=== PATIENT | female | born 1950 | race Caucasian/White ===

== ENCOUNTER 2023-01-10 14:23 | Inpatient (IN) | payer BC, MEDICAID ==
[~2023-01-10] VITALS: Ht 160 cm; Wt 66.7 kg
[2023-01-10 14:46] VITALS: BP_SYST 155; PULSE 85; RESP 16; TEMP 98.7; O2SAT 97
[2023-01-10] MEDS ORDERED: INSU100V7 (15:05)
[2023-01-10] MEDS ORDERED: PANT40TA45 PO (15:05)
[2023-01-10] MEDS ORDERED: AMLO5TAB92 PO (15:05)
[2023-01-10] MEDS ORDERED: GLIM1TAB18 PO (15:05)
[2023-01-10] MEDS ORDERED: CYCL1DRO16 EACH EYE (15:05)
[2023-01-10] MEDS ORDERED: CHOL50006 PO (15:10)
[2023-01-10] MEDS ORDERED: ASPI-524 PO (15:10)
[2023-01-10] MEDS ORDERED: TAMS-11 PO (15:10)
[2023-01-10] MEDS ORDERED: ACET325T39 PO (15:10)
[2023-01-10] MEDS ORDERED: SITA100T11 PO (15:10)
[2023-01-10 15:36] LABS: BASOPHILS # (AUTO) 0.1 K/uL (0.0-0.2); BASOPHILS % (AUTO) 0.6 % (0.0-2.0); EOSINOPHILS # (AUTO) 0.1 K/uL (0.0-0.4); EOSINOPHILS % (AUTO) 1.3 % (0.0-4.0); HEMATOCRIT 26.2 % (36-48); HEMOGLOBIN 8.5 g/dL (12.0-16.0); LYMPHOCYTES % (AUTO) 11.4 % (20.5-51.5); MEAN CORPUSCULAR HEMOGLOBIN 26 pg (27-31); MEAN CORPUSCULAR HGB CONC 33 % (32-36); MEAN CORPUSCULAR VOLUME 80 fL (79.0-98.0); MONOCYTES # (AUTO) 0.8 K/uL (0.0-1.0); MONOCYTES % (AUTO) 9.4 % (1.7-9.3); NEUTROPHILS # (AUTO) 6.5 K/uL (1.8-7.7); NEUTROPHILS % (AUTO) 77.3 % (40.0-70.0); PLATELET COUNT (AUTO) 285 K/uL (130-430); RED BLOOD CELL COUNT(AUTO) 3.29 MIL/uL (4.2-6.2); RED CELL DISTRIBUTION WIDTH 19.2 % (9.0-15.0); WHITE BLOOD COUNT (AUTO) 8.5 K/uL (4.8-10.8)
[2023-01-10 15:44] LABS: ANION GAP 11 (5-15); CARBON DIOXIDE 25 mmol/L (23-29); CHLORIDE 104 mmol/L (98-107); CREATININE 6.09 mg/dL (0.55-1.30); GLUCOSE 171 mg/dL (74-106); POTASSIUM 3.7 mmol/L (3.5-5.1); SODIUM SERUM 140 mmol/L (136-145); UREA NITROGEN, BLOOD 64 mg/dL (8-21)
[2023-01-10 15:50] LABS: GFR AFRICAN AMERICAN 9 mL/min (>90); GFR NON AFRICAN-AMERICAN 7 mL/min (>90)
[2023-01-10 15:51] LABS: ALANINE AMINOTRANSFERASE 4 U/L (12-78); ALBUMIN 2.2 g/dL (3.4-4.8); ASPARTATE AMINOTRANSFERASE 10 U/L (10-37); TOTAL BILIRUBIN 0.4 mg/dL (0.0-1.0); TOTAL PROTEIN, SERUM 5.3 g/dL (6.4-8.3)
[2023-01-10] MEDS ORDERED: ACETAMINOPHEN 325 MG TABLET PO PRN (19:30)
[2023-01-10 20:00] VITALS: BP_SYST 130; PULSE 67; RESP 18; TEMP 98.6; O2SAT 98
[2023-01-10] MEDS ORDERED: HEPARIN SODIUM,PORCINE 5,000 UNITS/ML VIAL IVP ONE (21:45)
[2023-01-10] MEDS ORDERED: HEPARIN SODIUM, PORCINE 10,000 UNITS/ 10 ML VIAL MC ONE (22:30)
[2023-01-10] MEDS: TAMSULOSIN HCL 0.4 MG CAP PO SCH (23:02)
[2023-01-10] MEDS: cycloSPORINE 0.05%, 0.4 ML OPHTHALMIC EMULSION DROPERETTE OP SCH (23:03)
[2023-01-10 23:33] VITALS: BP_SYST 130; PULSE 67; RESP 18; TEMP 98.6
[2023-01-11] VITALS (8 sets, daily range): BP systolic 100–150; PULSE 67–96; RESP 14–19; TEMP 97.4–98.6; O2SAT 92–98
[2023-01-11 06:00] LABS: TOTAL IRON BIND. CAPACITY 155 ug/dL (250-450)
[2023-01-11 06:11] LABS: CALCIUM 7.7 mg/dL (8.4-11.0); CREATININE 4.04 mg/dL (0.55-1.30); POTASSIUM 3.3 mmol/L (3.5-5.1); TOTAL BILIRUBIN 0.4 mg/dL (0.0-1.0); TOTAL PROTEIN, SERUM 5.3 g/dL (6.4-8.3)
[2023-01-11] MEDS ORDERED: NON-FORMULARY MEDICATION (Glimepiride 1 TAB) PO SCH (09:00)
[2023-01-11] MEDS: JANUVIA 100 MG PO SCH (09:00)
[2023-01-11] MEDS: cycloSPORINE 0.05%, 0.4 ML OPHTHALMIC EMULSION DROPERETTE OP SCH ×2 (10:23→21:19)
[2023-01-11] MEDS: ASPIRIN 81 MG TAB.CHEW PO SCH (10:24)
[2023-01-11] MEDS: GLIMEPIRIDE 2 MG TABLET PO SCH (10:24)
[2023-01-11] MEDS: CHOLECALCIFEROL (VITAMIN D3) 5,000 UNIT TABLET PO SCH (10:25)
[2023-01-11] MEDS: amLODIPine BESYLATE 5 MG TABLET PO SCH (10:25)
[2023-01-11] MEDS: PANTOPRAZOLE SODIUM 40 MG TAB PO SCH (10:25)
[2023-01-11] MEDS: INSULIN REGULAR, HUMAN 100 UNITS/ML, 3 ML VIAL (humuLIN R) SUBCUT PRN ×2 (11:10→21:24)
[2023-01-11] MEDS ORDERED: SOD FERRIC GLUC COMPLEX/SUC 125 MG in NS 100 ML IV SCH (13:45)
[2023-01-11] MEDS: IRON SUCROSE COMPLEX 100 MG in NS 50 ML IV SCH (17:41)
[2023-01-11] MEDS ORDERED: ONDANSETRON HCL 4 MG/2 ML VIAL IM PRN (18:15)
[2023-01-11] MEDS ORDERED: ONDANSETRON HCL 4 MG/2 ML VIAL IVP PRN (18:16)
[2023-01-11] MEDS: TAMSULOSIN HCL 0.4 MG CAP PO SCH (21:20)
[2023-01-12] VITALS (7 sets, daily range): BP systolic 101–124; PULSE 75–90; RESP 18–19; TEMP 97.1–99.5; O2SAT 93–97
[2023-01-12 07:00] LABS: BASOPHILS % (AUTO) 0.3 % (0.0-2.0); EOSINOPHILS % (AUTO) 0.1 % (0.0-4.0); HEMATOCRIT 28.1 % (36-48); HEMOGLOBIN 8.9 g/dL (12.0-16.0); LYMPHOCYTES # (AUTO) 0.9 K/uL (1.0-5.5); LYMPHOCYTES % (AUTO) 5.3 % (20.5-51.5); MEAN CORPUSCULAR HEMOGLOBIN 26 pg (27-31); MEAN CORPUSCULAR HGB CONC 32 % (32-36); MEAN CORPUSCULAR VOLUME 81 fL (79.0-98.0); MONOCYTES # (AUTO) 1.1 K/uL (0.0-1.0); MONOCYTES % (AUTO) 6.9 % (1.7-9.3); NEUTROPHILS # (AUTO) 14.3 K/uL (1.8-7.7); NEUTROPHILS % (AUTO) 87.4 % (40.0-70.0); PLATELET COUNT (AUTO) 231 K/uL (130-430); RED BLOOD CELL COUNT(AUTO) 3.47 MIL/uL (4.2-6.2); RED CELL DISTRIBUTION WIDTH 18.8 % (9.0-15.0); WHITE BLOOD COUNT (AUTO) 16.4 K/uL (4.8-10.8)
[2023-01-12 07:33] LABS: ALBUMIN 2.1 g/dL (3.4-4.8); CREATININE 4.46 mg/dL (0.55-1.30); POTASSIUM 3.4 mmol/L (3.5-5.1); TOTAL BILIRUBIN 0.4 mg/dL (0.0-1.0); TOTAL PROTEIN, SERUM 5.6 g/dL (6.4-8.3)
[2023-01-12 08:06] LABS: FOLATE (FOLIC ACID) 3.4 ng/mL (>3.0)
[2023-01-12] MEDS: PANTOPRAZOLE SODIUM 40 MG TAB PO SCH (08:52)
[2023-01-12] MEDS: CHOLECALCIFEROL (VITAMIN D3) 5,000 UNIT TABLET PO SCH (08:52)
[2023-01-12] MEDS: ASPIRIN 81 MG TAB.CHEW PO SCH (08:52)
[2023-01-12] MEDS: JANUVIA 100 MG PO SCH (09:00)
[2023-01-12] MEDS: GLIMEPIRIDE 2 MG TABLET PO SCH (09:00)
[2023-01-12] MEDS: amLODIPine BESYLATE 5 MG TABLET PO SCH (09:00)
[2023-01-12] MEDS: cycloSPORINE 0.05%, 0.4 ML OPHTHALMIC EMULSION DROPERETTE OP SCH ×2 (09:00→21:27)
[2023-01-12] MEDS ORDERED: HEPARIN SODIUM,PORCINE 5,000 UNITS/ML VIAL MC PRN (11:45)
[2023-01-12] MEDS: IRON SUCROSE COMPLEX 100 MG in NS 50 ML IV SCH (16:03)
[2023-01-12] MEDS: TAMSULOSIN HCL 0.4 MG CAP PO SCH (21:23)
[2023-01-13 00:56] VITALS: BP_SYST 122; PULSE 78; RESP 18; TEMP 98.9; O2SAT 96
[2023-01-13 07:15] LABS: BASOPHILS # (AUTO) 0.1 K/uL (0.0-0.2); BASOPHILS % (AUTO) 0.4 % (0.0-2.0); EOSINOPHILS # (AUTO) 0.1 K/uL (0.0-0.4); EOSINOPHILS % (AUTO) 0.4 % (0.0-4.0); HEMATOCRIT 28.7 % (36-48); HEMOGLOBIN 9.1 g/dL (12.0-16.0); LYMPHOCYTES # (AUTO) 1.1 K/uL (1.0-5.5); MEAN CORPUSCULAR HEMOGLOBIN 26 pg (27-31); MEAN CORPUSCULAR HGB CONC 32 % (32-36); MEAN CORPUSCULAR VOLUME 81 fL (79.0-98.0); NEUTROPHILS % (AUTO) 77.2 % (40.0-70.0); PLATELET COUNT (AUTO) 227 K/uL (130-430); RED BLOOD CELL COUNT(AUTO) 3.56 MIL/uL (4.2-6.2); RED CELL DISTRIBUTION WIDTH 19.5 % (9.0-15.0); WHITE BLOOD COUNT (AUTO) 14.3 K/uL (4.8-10.8)
[2023-01-13 07:24] LABS: CALCIUM 7.9 mg/dL (8.4-11.0); CREATININE 3.5 mg/dL (0.55-1.30); POTASSIUM 3.4 mmol/L (3.5-5.1)
[2023-01-13 08:00] VITALS: BP_SYST 103; PULSE 80; RESP 16; TEMP 96.7; O2SAT 95
[2023-01-13] MEDS: ASPIRIN 81 MG TAB.CHEW PO SCH (09:28)
[2023-01-13] MEDS: CHOLECALCIFEROL (VITAMIN D3) 5,000 UNIT TABLET PO SCH (09:28)
[2023-01-13] MEDS: GLIMEPIRIDE 2 MG TABLET PO SCH (09:29)
[2023-01-13] MEDS: PANTOPRAZOLE SODIUM 40 MG TAB PO SCH (09:29)
[2023-01-13] MEDS: amLODIPine BESYLATE 5 MG TABLET PO SCH (09:30)
[2023-01-13] MEDS: cycloSPORINE 0.05%, 0.4 ML OPHTHALMIC EMULSION DROPERETTE OP SCH (09:31)
[2023-01-13 11:13] VITALS: O2SAT 96
[2023-01-13 12:00] VITALS: BP_SYST 117; PULSE 77; RESP 18; TEMP 97.7; O2SAT 97
[2023-01-13 16:00] VITALS: BP_SYST 111; PULSE 84; RESP 16; TEMP 97.6; O2SAT 98
[2023-01-13] MEDS: IRON SUCROSE COMPLEX 100 MG in NS 50 ML IV SCH (16:51)
[2023-01-13 19:00] VITALS: BP_SYST 111; PULSE 84; RESP 16; TEMP 98.2; O2SAT 98
== END 2023-01-13 21:12 | DRG 291 ==
LOC: SED 14:23 → STU 17:34
PROVIDERS: ADMIT Family Medicine; ATTEND Family Medicine
PROC: 5A1D70Z Performance of Urinary Filtration, Intermittent, Less than 6 Hours Per Day (ICD-10-PCS; principal; 2023-01-10)
PROC: 5A1D70Z Performance of Urinary Filtration, Intermittent, Less than 6 Hours Per Day (ICD-10-PCS; 2023-01-12)
DX: I13.2 Hypertensive heart and chronic kidney disease with heart failure and with stage 5 chronic kidney disease, or end stage renal disease (principal); I50.31 Acute diastolic (congestive) heart failure; N18.6 End stage renal disease; E87.70 Fluid overload, unspecified; D64.9 Anemia, unspecified; E11.22 Type 2 diabetes mellitus with diabetic chronic kidney disease; R13.10 Dysphagia, unspecified; D72.829 Elevated white blood cell count, unspecified; K21.9 Gastro-esophageal reflux disease without esophagitis; E78.5 Hyperlipidemia, unspecified; Z91.014 Allergy to mammalian meats; Z90.49 Acquired absence of other specified parts of digestive tract; Z88.8 Allergy status to other drugs, medicaments and biological substances; Z88.2 Allergy status to sulfonamides
CPT/HCPCS: 36415; 71045; 80048; 80053; 82607; 82728; 82746; 82962; 83540; 83550; 83880; 84484; 85025; 87081; 90935; 90937; 92610-GN; 93005; 99285; G0378; J1644; J1756; J1815; J2405; J7030; J7050

== ENCOUNTER 2023-01-17 15:08 | Inpatient (IN) | payer BC, MEDICAID ==
[~2023-01-17] VITALS: Ht 162.6 cm; Wt 63.5 kg
[~2023-01-17 15:08] MED LIST: ACET325T39 PO; AMLO5TAB92 PO; ASPI-524 PO; CHOL50006 PO; CYCL1DRO16 EACH EYE; GLIM1TAB18 PO; INSU100V7; PANT40TA45 PO; SITA100T11 PO; TAMS-11 PO
[2023-01-17 15:10] VITALS: BP_SYST 121; PULSE 75; RESP 18; TEMP 97.2; O2SAT 94
[2023-01-17] MEDS ORDERED: ALTEPLASE 2 MG VIAL MC ONE (16:30)
[2023-01-17 17:00] LABS: BASOPHILS # (AUTO) 0.1 K/uL (0.0-0.2); BASOPHILS % (AUTO) 0.5 % (0.0-2.0); EOSINOPHILS # (AUTO) 0.1 K/uL (0.0-0.4); EOSINOPHILS % (AUTO) 1.2 % (0.0-4.0); HEMATOCRIT 28.8 % (36-48); HEMOGLOBIN 9.3 g/dL (12.0-16.0); LYMPHOCYTES # (AUTO) 0.9 K/uL (1.0-5.5); LYMPHOCYTES % (AUTO) 8.9 % (20.5-51.5); MEAN CORPUSCULAR HEMOGLOBIN 26 pg (27-31); MEAN CORPUSCULAR HGB CONC 32 % (32-36); MEAN CORPUSCULAR VOLUME 80 fL (79.0-98.0); MONOCYTES # (AUTO) 1.7 K/uL (0.0-1.0); MONOCYTES % (AUTO) 16.7 % (1.7-9.3); NEUTROPHILS # (AUTO) 7.2 K/uL (1.8-7.7); NEUTROPHILS % (AUTO) 72.7 % (40.0-70.0); PLATELET COUNT (AUTO) 279 K/uL (130-430); RED BLOOD CELL COUNT(AUTO) 3.58 MIL/uL (4.2-6.2); RED CELL DISTRIBUTION WIDTH 18.3 % (9.0-15.0); WHITE BLOOD COUNT (AUTO) 9.9 K/uL (4.8-10.8)
[2023-01-17 17:24] LABS: INR 1.1 (0.8-1.2); PROTHROMBIN TIME 11.5 SECS (9.5-12.5)
[2023-01-17 17:26] LABS: CALCIUM 7.4 mg/dL (8.4-11.0); CREATININE 3.48 mg/dL (0.55-1.30); TOTAL BILIRUBIN 0.2 mg/dL (0.0-1.0); TOTAL PROTEIN, SERUM 5.3 g/dL (6.4-8.3)
[2023-01-17 17:28] LABS: POTASSIUM 2.9 mmol/L (3.5-5.1)
[2023-01-17] MEDS ORDERED: POTASSIUM CHLORIDE 20 MEQ/PKT PACKET PO ONE (17:30)
[2023-01-17 19:08] VITALS: BP_SYST 126; PULSE 76; RESP 18; TEMP 98.3
[2023-01-17 20:00] VITALS: BP_SYST 121; PULSE 74; RESP 18; TEMP 98.5; O2SAT 95
[2023-01-17] MEDS ORDERED: ACETAMINOPHEN 325 MG TABLET PO SCH (21:15)
[2023-01-17] MEDS ORDERED: INSULIN REGULAR, HUMAN 100 UNITS/ML, 3 ML VIAL (humuLIN R) SUBCUT PRN (21:15)
[2023-01-18] VITALS (7 sets, daily range): BP systolic 130–146; PULSE 70–75; RESP 14–18; TEMP 97.3–98.9; O2SAT 94–97
[2023-01-18 05:04] LABS: ALBUMIN 1.8 g/dL (3.4-4.8); CALCIUM 7.6 mg/dL (8.4-11.0); CREATININE 3.41 mg/dL (0.55-1.30); TOTAL BILIRUBIN 0.3 mg/dL (0.0-1.0); TOTAL PROTEIN, SERUM 5.1 g/dL (6.4-8.3)
[2023-01-18 05:17] LABS: POTASSIUM 2.8 mmol/L (3.5-5.1)
[2023-01-18] MEDS ORDERED: POTASSIUM CHLORIDE 20 MEQ/PKT PACKET PO ONE (06:30)
[2023-01-18] MEDS: GLIMEPIRIDE 2 MG TABLET PO SCH (07:00)
[2023-01-18] MEDS ORDERED: cycloSPORINE 0.05%, 0.4 ML OPHTHALMIC EMULSION DROPERETTE OP SCH (09:00)
[2023-01-18] MEDS: amLODIPine BESYLATE 5 MG TABLET PO SCH (09:00)
[2023-01-18] MEDS: PANTOPRAZOLE SODIUM 40 MG TAB PO SCH (09:00)
[2023-01-18] MEDS: CHOLECALCIFEROL (VITAMIN D3) 5,000 UNIT TABLET PO SCH (09:00)
[2023-01-18] MEDS: ASPIRIN 81 MG TAB.CHEW PO SCH (09:00)
[2023-01-18] MEDS ORDERED: ALTEPLASE 2 MG VIAL MC ONE ×2 (10:45→16:30)
[2023-01-18] MEDS: cycloSPORINE 0.05%, 0.4 ML OPHTHALMIC EMULSION DROPERETTE OP SCH (20:50)
[2023-01-18] MEDS ORDERED: TAMSULOSIN HCL 0.4 MG CAP PO SCH (21:00)
[2023-01-18 21:58] LABS: COLOR,URINE YELLOW (YELLOW)
[2023-01-18 21:59] LABS: BILIRUBIN,URINE NEGATIVE (NEGATIVE); BLOOD, URINE TRACE (NEGATIVE); CLARITY/URINE SLIGHTLY CLOUDY (CLEAR); GLUCOSE,URINE NEGATIVE (NEGATIVE); KETONES,URINE NEGATIVE (NEGATIVE); LEUKOCYTE ESTERASE ,URINE NEGATIVE (NEGATIVE); NITRITE, URINE NEGATIVE (NEGATIVE); PH,URINE 5.5 (5.0-8.0); PROTEIN URINE 2+ (NEGATIVE); UROBILINOGEN,URINE 0.2 (0.2-1.0)
[2023-01-18 22:01] LABS: BACTERIA,URINE MODERATE /HPF (None Seen); MUCUS,URINE None Seen /LPF (None Seen); OTHER CASTS, URINE WBC CASTS 1+ /LPF (None Seen); RBC,URINE 0-3 /HPF (0-3)
[2023-01-19] VITALS (7 sets, daily range): BP systolic 109–142; PULSE 72–77; RESP 16–18; TEMP 97.2–98.7; O2SAT 95–98
[2023-01-19] MEDS: GLIMEPIRIDE 2 MG TABLET PO SCH (06:56)
[2023-01-19] MEDS: ASPIRIN 81 MG TAB.CHEW PO SCH (08:27)
[2023-01-19] MEDS: CHOLECALCIFEROL (VITAMIN D3) 5,000 UNIT TABLET PO SCH (08:28)
[2023-01-19] MEDS: amLODIPine BESYLATE 5 MG TABLET PO SCH (08:28)
[2023-01-19] MEDS: cycloSPORINE 0.05%, 0.4 ML OPHTHALMIC EMULSION DROPERETTE OP SCH (08:28)
[2023-01-19] MEDS: PANTOPRAZOLE SODIUM 40 MG TAB PO SCH (08:28)
[2023-01-19 11:27] LABS: BASOPHILS # (AUTO) 0.1 K/uL (0.0-0.2); BASOPHILS % (AUTO) 0.5 % (0.0-2.0); EOSINOPHILS # (AUTO) 0.3 K/uL (0.0-0.4); EOSINOPHILS % (AUTO) 2.5 % (0.0-4.0); HEMATOCRIT 30.8 % (36-48); HEMOGLOBIN 9.7 g/dL (12.0-16.0); LYMPHOCYTES # (AUTO) 1.5 K/uL (1.0-5.5); LYMPHOCYTES % (AUTO) 13.9 % (20.5-51.5); MEAN CORPUSCULAR HEMOGLOBIN 25 pg (27-31); MEAN CORPUSCULAR HGB CONC 32 % (32-36); MEAN CORPUSCULAR VOLUME 80 fL (79.0-98.0); MONOCYTES # (AUTO) 1.1 K/uL (0.0-1.0); MONOCYTES % (AUTO) 9.7 % (1.7-9.3); NEUTROPHILS # (AUTO) 8.1 K/uL (1.8-7.7); NEUTROPHILS % (AUTO) 73.4 % (40.0-70.0); PLATELET COUNT (AUTO) 281 K/uL (130-430); RED BLOOD CELL COUNT(AUTO) 3.84 MIL/uL (4.2-6.2); WHITE BLOOD COUNT (AUTO) 11.1 K/uL (4.8-10.8)
[2023-01-19 11:41] LABS: CALCIUM 7.5 mg/dL (8.4-11.0); CREATININE 2.33 mg/dL (0.55-1.30); POTASSIUM 3.6 mmol/L (3.5-5.1)
== END 2023-01-19 21:15 | DRG 698 ==
LOC: SED 15:08 → SMU 17:25
PROVIDERS: ADMIT Family Medicine; ATTEND Family Medicine
PROC: 5A1D70Z Performance of Urinary Filtration, Intermittent, Less than 6 Hours Per Day (ICD-10-PCS; principal; 2023-01-17)
PROC: 5A1D70Z Performance of Urinary Filtration, Intermittent, Less than 6 Hours Per Day (ICD-10-PCS; 2023-01-18)
PROC: 5A1D70Z Performance of Urinary Filtration, Intermittent, Less than 6 Hours Per Day (ICD-10-PCS; 2023-01-19)
DX: T82.41XA Breakdown (mechanical) of vascular dialysis catheter, initial encounter (principal); N18.6 End stage renal disease; I12.0 Hypertensive chronic kidney disease with stage 5 chronic kidney disease or end stage renal disease; D64.9 Anemia, unspecified; Y83.8 Other surgical procedures as the cause of abnormal reaction of the patient, or of later complication, without mention of misadventure at the time of the procedure; K21.9 Gastro-esophageal reflux disease without esophagitis; E11.22 Type 2 diabetes mellitus with diabetic chronic kidney disease; Z99.2 Dependence on renal dialysis; Z88.1 Allergy status to other antibiotic agents; Z88.2 Allergy status to sulfonamides; Z91.018 Allergy to other foods; Z79.899 Other long term (current) drug therapy; Z91.014 Allergy to mammalian meats; Z90.49 Acquired absence of other specified parts of digestive tract; Z79.4 Long term (current) use of insulin; Z88.8 Allergy status to other drugs, medicaments and biological substances; Y92.89 Other specified places as the place of occurrence of the external cause; Z91.041 Radiographic dye allergy status
CPT/HCPCS: 36415; 80048; 80053; 81000; 82962; 85025; 85610-TC; 85730-TC; 87081; 87086; 90935; 90937; 99285; J2997; J7030

== ENCOUNTER 2023-01-29 11:30 | Inpatient (IN) | payer OTHER, MEDICAID ==
[~2023-01-29] VITALS: Ht 160 cm; Wt 58.5 kg
[2023-01-29 11:30] VITALS: BP_SYST 117; PULSE 72; RESP 16; TEMP 98.1; O2SAT 97
[2023-01-29 12:38] LABS: BASOPHILS # (AUTO) 0.1 K/uL (0.0-0.2); BASOPHILS % (AUTO) 0.9 % (0.0-2.0); EOSINOPHILS # (AUTO) 0.2 K/uL (0.0-0.4); EOSINOPHILS % (AUTO) 2.3 % (0.0-4.0); HEMATOCRIT 25.6 % (36-48); HEMOGLOBIN 8.3 g/dL (12.0-16.0); LYMPHOCYTES # (AUTO) 1.4 K/uL (1.0-5.5); LYMPHOCYTES % (AUTO) 17.5 % (20.5-51.5); MEAN CORPUSCULAR HEMOGLOBIN 26 pg (27-31); MEAN CORPUSCULAR HGB CONC 33 % (32-36); MEAN CORPUSCULAR VOLUME 81 fL (79.0-98.0); MONOCYTES # (AUTO) 0.7 K/uL (0.0-1.0); MONOCYTES % (AUTO) 8.5 % (1.7-9.3); NEUTROPHILS # (AUTO) 5.5 K/uL (1.8-7.7); NEUTROPHILS % (AUTO) 70.8 % (40.0-70.0); PLATELET COUNT (AUTO) 244 K/uL (130-430); RED BLOOD CELL COUNT(AUTO) 3.16 MIL/uL (4.2-6.2); RED CELL DISTRIBUTION WIDTH 18.4 % (9.0-15.0); WHITE BLOOD COUNT (AUTO) 7.7 K/uL (4.8-10.8)
[2023-01-29 12:47] LABS: ANION GAP 7 (5-15); CALCIUM 8.1 mg/dL (8.4-11.0); CARBON DIOXIDE 30 mmol/L (23-29); CHLORIDE 103 mmol/L (98-107); CREATININE 2.05 mg/dL (0.55-1.30); GLUCOSE 184 mg/dL (74-106); POTASSIUM 4.5 mmol/L (3.5-5.1); SODIUM SERUM 140 mmol/L (136-145); UREA NITROGEN, BLOOD 28 mg/dL (8-21)
[2023-01-29 12:48] LABS: GFR AFRICAN AMERICAN 31 mL/min (>90); GFR NON AFRICAN-AMERICAN 25 mL/min (>90)
[2023-01-29 12:54] LABS: ALANINE AMINOTRANSFERASE 8 U/L (12-78); ALBUMIN 2.1 g/dL (3.4-4.8); ASPARTATE AMINOTRANSFERASE 13 U/L (10-37); TOTAL BILIRUBIN 0.2 mg/dL (0.0-1.0); TOTAL PROTEIN, SERUM 5.5 g/dL (6.4-8.3)
[2023-01-29 17:22] VITALS: BP_SYST 151; PULSE 74; RESP 16; TEMP 98.4
[2023-01-29] MEDS ORDERED: ACETAMINOPHEN 325 MG TABLET PO PRN (17:45)
[2023-01-29 17:57] VITALS: O2SAT 98
[2023-01-29] MEDS ORDERED: SOD FERRIC GLUC COMPLEX/SUC 125 MG in NS 100 ML IV SCH (18:00)
[2023-01-29 20:00] VITALS: BP_SYST 153; PULSE 98; RESP 18; TEMP 98.6; O2SAT 98
[2023-01-29] MEDS: MEGESTROL ACETATE 400 MG/10 ML UDC PO SCH ×2 (21:00→21:37)
[2023-01-29] MEDS ORDERED: cycloSPORINE 0.05%, 0.4 ML OPHTHALMIC EMULSION DROPERETTE OP SCH (21:00)
[2023-01-29] MEDS: TAMSULOSIN HCL 0.4 MG CAP PO SCH (21:37)
[2023-01-29] MEDS: INSULIN REGULAR, HUMAN 100 UNITS/ML, 3 ML VIAL (humuLIN R) SUBCUT PRN (21:49)
[2023-01-29 23:46] VITALS: BP_SYST 153; PULSE 78; RESP 18; TEMP 98.6; O2SAT 98
[2023-01-30 01:16] VITALS: BP_SYST 147; PULSE 77; RESP 18; TEMP 98.6; O2SAT 96
[2023-01-30 06:22] LABS: BASOPHILS # (AUTO) 0.1 K/uL (0.0-0.2); BASOPHILS % (AUTO) 0.7 % (0.0-2.0); EOSINOPHILS # (AUTO) 0.2 K/uL (0.0-0.4); EOSINOPHILS % (AUTO) 2.6 % (0.0-4.0); HEMATOCRIT 25.9 % (36-48); HEMOGLOBIN 8.5 g/dL (12.0-16.0); LYMPHOCYTES # (AUTO) 1.6 K/uL (1.0-5.5); LYMPHOCYTES % (AUTO) 19.7 % (20.5-51.5); MEAN CORPUSCULAR HEMOGLOBIN 27 pg (27-31); MEAN CORPUSCULAR HGB CONC 33 % (32-36); MEAN CORPUSCULAR VOLUME 81 fL (79.0-98.0); MONOCYTES # (AUTO) 0.7 K/uL (0.0-1.0); MONOCYTES % (AUTO) 8.6 % (1.7-9.3); NEUTROPHILS # (AUTO) 5.5 K/uL (1.8-7.7); NEUTROPHILS % (AUTO) 68.4 % (40.0-70.0); PLATELET COUNT (AUTO) 251 K/uL (130-430); RED CELL DISTRIBUTION WIDTH 18.9 % (9.0-15.0); WHITE BLOOD COUNT (AUTO) 8.1 K/uL (4.8-10.8)
[2023-01-30] MEDS: GLIMEPIRIDE 2 MG TABLET PO SCH (06:49)
[2023-01-30 07:00] LABS: ALBUMIN 2.1 g/dL (3.4-4.8); CALCIUM 8.6 mg/dL (8.4-11.0); CREATININE 1.81 mg/dL (0.55-1.30); POTASSIUM 4.5 mmol/L (3.5-5.1); TOTAL BILIRUBIN 0.3 mg/dL (0.0-1.0); TOTAL PROTEIN, SERUM 5.6 g/dL (6.4-8.3)
[2023-01-30] MEDS ORDERED: cycloSPORINE 0.05%, 0.4 ML OPHTHALMIC EMULSION DROPERETTE OP SCH (07:14)
[2023-01-30 08:15] LABS: TOTAL IRON BIND. CAPACITY 174 ug/dL (250-450)
[2023-01-30] MEDS: SOD FERRIC GLUC COMPLEX/SUC 125 MG in NS 100 ML IV SCH (09:53)
[2023-01-30] MEDS: PANTOPRAZOLE SODIUM 40 MG TAB PO SCH (10:04)
[2023-01-30] MEDS: CHOLECALCIFEROL (VITAMIN D3) 5,000 UNIT TABLET PO SCH (10:04)
[2023-01-30] MEDS: ASPIRIN 81 MG TAB.CHEW PO SCH (10:04)
[2023-01-30] MEDS: MEGESTROL ACETATE 400 MG/10 ML UDC PO SCH ×2 (10:04→21:00)
[2023-01-30] MEDS: amLODIPine BESYLATE 5 MG TABLET PO SCH (10:04)
[2023-01-30] MEDS: cycloSPORINE 0.05%, 0.4 ML OPHTHALMIC EMULSION DROPERETTE OP SCH ×2 (10:05→21:00)
[2023-01-30 11:30] VITALS: BP_SYST 124; PULSE 78; RESP 18; TEMP 97.9; O2SAT 97
[2023-01-30 13:43] VITALS: O2SAT 97
[2023-01-30 17:30] VITALS: BP_SYST 141; PULSE 79; RESP 17; TEMP 99; O2SAT 95
[2023-01-30 20:00] VITALS: BP_SYST 144; PULSE 64; RESP 18; TEMP 98.6; O2SAT 95
[2023-01-30] MEDS: TAMSULOSIN HCL 0.4 MG CAP PO SCH (20:26)
[2023-01-30] MEDS: INSULIN REGULAR, HUMAN 100 UNITS/ML, 3 ML VIAL (humuLIN R) SUBCUT PRN (20:31)
[2023-01-30 23:42] VITALS: BP_SYST 144; PULSE 64; RESP 18; TEMP 98.6; O2SAT 95
[2023-01-31] VITALS (7 sets, daily range): BP systolic 130–144; PULSE 75–85; RESP 16–20; TEMP 97.1–98.6; O2SAT 97–98
[2023-01-31] MEDS: GLIMEPIRIDE 2 MG TABLET PO SCH (06:02)
[2023-01-31 07:08] LABS: CALCIUM 8.6 mg/dL (8.4-11.0); CREATININE 1.7 mg/dL (0.55-1.30); POTASSIUM 4.8 mmol/L (3.5-5.1)
[2023-01-31] MEDS: cycloSPORINE 0.05%, 0.4 ML OPHTHALMIC EMULSION DROPERETTE OP SCH ×2 (09:00→21:18)
[2023-01-31] MEDS: ASPIRIN 81 MG TAB.CHEW PO SCH (10:59)
[2023-01-31] MEDS: PANTOPRAZOLE SODIUM 40 MG TAB PO SCH (11:00)
[2023-01-31] MEDS: SOD FERRIC GLUC COMPLEX/SUC 125 MG in NS 100 ML IV SCH (11:02)
[2023-01-31] MEDS: amLODIPine BESYLATE 5 MG TABLET PO SCH (11:04)
[2023-01-31] MEDS: CHOLECALCIFEROL (VITAMIN D3) 5,000 UNIT TABLET PO SCH (11:04)
[2023-01-31] MEDS: MEGESTROL ACETATE 400 MG/10 ML UDC PO SCH ×2 (11:05→21:00)
[2023-01-31] MEDS: INSULIN REGULAR, HUMAN 100 UNITS/ML, 3 ML VIAL (humuLIN R) SUBCUT PRN (12:34)
[2023-01-31] MEDS ORDERED: EPOETIN ALFA 20,000 UNITS/ML VIAL SUBCUT SCH (17:00)
[2023-01-31] MEDS: TAMSULOSIN HCL 0.4 MG CAP PO SCH (21:18)
[2023-02-01 00:19] VITALS: BP_SYST 128; PULSE 76; RESP 15; TEMP 98; O2SAT 96
[2023-02-01] MEDS: GLIMEPIRIDE 2 MG TABLET PO SCH (06:14)
[2023-02-01 08:00] VITALS: BP_SYST 141; PULSE 79; RESP 16; TEMP 97.5; O2SAT 97
[2023-02-01 09:00] VITALS: BP_SYST 135; PULSE 80; RESP 16; TEMP 96.8; O2SAT 96
[2023-02-01] MEDS: MEGESTROL ACETATE 400 MG/10 ML UDC PO SCH ×2 (09:00→21:00)
[2023-02-01] MEDS: CHOLECALCIFEROL (VITAMIN D3) 5,000 UNIT TABLET PO SCH (09:18)
[2023-02-01] MEDS: ASPIRIN 81 MG TAB.CHEW PO SCH (09:18)
[2023-02-01] MEDS: amLODIPine BESYLATE 5 MG TABLET PO SCH (09:20)
[2023-02-01] MEDS: PANTOPRAZOLE SODIUM 40 MG TAB PO SCH (09:20)
[2023-02-01] MEDS: cycloSPORINE 0.05%, 0.4 ML OPHTHALMIC EMULSION DROPERETTE OP SCH ×2 (09:27→21:26)
[2023-02-01] MEDS: SOD FERRIC GLUC COMPLEX/SUC 125 MG in NS 100 ML IV SCH (09:51)
[2023-02-01] MEDS ORDERED: LOPERAMIDE HCL 2 MG CAPSULE PO PRN (10:45)
[2023-02-01 11:25] VITALS: BP_SYST 107; PULSE 77; RESP 16; TEMP 97.7; O2SAT 98
[2023-02-01 20:07] VITALS: BP_SYST 140; PULSE 78; RESP 18; TEMP 98.2; O2SAT 97
[2023-02-01] MEDS: TAMSULOSIN HCL 0.4 MG CAP PO SCH (21:25)
[2023-02-02 01:01] VITALS: BP_SYST 110; PULSE 80; RESP 17; TEMP 98.4; O2SAT 97
[2023-02-02] MEDS: GLIMEPIRIDE 2 MG TABLET PO SCH (06:21)
[2023-02-02 08:00] VITALS: BP_SYST 152; PULSE 78; RESP 17; TEMP 98.8; O2SAT 97
[2023-02-02] MEDS ORDERED: LIDOCAINE 1% 10 MG/ML, 20 ML MDV INJ ONE (08:00)
[2023-02-02] MEDS ORDERED: MORPHINE 2 MG/ML INJ. SYRINGE IVP ONE (08:00)
[2023-02-02] MEDS: SOD FERRIC GLUC COMPLEX/SUC 125 MG in NS 100 ML IV SCH (08:04)
[2023-02-02] MEDS: PANTOPRAZOLE SODIUM 40 MG TAB PO SCH (08:44)
[2023-02-02] MEDS: cycloSPORINE 0.05%, 0.4 ML OPHTHALMIC EMULSION DROPERETTE OP SCH (08:44)
[2023-02-02] MEDS: CHOLECALCIFEROL (VITAMIN D3) 5,000 UNIT TABLET PO SCH (08:44)
[2023-02-02] MEDS: ASPIRIN 81 MG TAB.CHEW PO SCH (08:44)
[2023-02-02] MEDS: MEGESTROL ACETATE 400 MG/10 ML UDC PO SCH (08:45)
[2023-02-02] MEDS: amLODIPine BESYLATE 5 MG TABLET PO SCH (08:45)
[2023-02-02 09:32] VITALS: O2SAT 96
[2023-02-02 11:07] VITALS: BP_SYST 139; PULSE 75; PULSE 79; RESP 17; TEMP 97.2; O2SAT 97
[2023-02-02] MEDS ORDERED: cloNIDine HCL 0.1 MG TABLET PO PRN (11:15)
[2023-02-02] MEDS ORDERED: cloNIDine HCL 0.1 MG TABLET PO ONE (11:15)
[2023-02-02 12:25] VITALS: BP_SYST 139; PULSE 75; RESP 18; TEMP 97.2; O2SAT 97
== END 2023-02-02 13:05 | DRG 683 ==
LOC: SED 11:30 → SMU 14:27
PROVIDERS: ADMIT Family Medicine; ATTEND Family Medicine
PROC: 05PY33Z Removal of Infusion Device from Upper Vein, Percutaneous Approach (ICD-10-PCS; principal; 2023-02-02)
DX: N17.9 Acute kidney failure, unspecified (principal); E44.0 Moderate protein-calorie malnutrition; I13.0 Hypertensive heart and chronic kidney disease with heart failure and stage 1 through stage 4 chronic kidney disease, or unspecified chronic kidney disease; E87.70 Fluid overload, unspecified; E11.22 Type 2 diabetes mellitus with diabetic chronic kidney disease; Z68.22 Body mass index [BMI] 22.0-22.9, adult; D50.9 Iron deficiency anemia, unspecified; Z88.2 Allergy status to sulfonamides; Z88.8 Allergy status to other drugs, medicaments and biological substances; Z90.49 Acquired absence of other specified parts of digestive tract; Z91.041 Radiographic dye allergy status; I50.9 Heart failure, unspecified; N18.9 Chronic kidney disease, unspecified
CPT/HCPCS: 36415; 71045; 80048; 80053; 82728; 82962; 83540; 83550; 84484; 85025; 87081; 93005; 96365; 97110-GP; 97163-GP; 97530-GP; 99285; J0885; J1815; J2916; J7030; J7050